=== PATIENT | male | born 1960 | race Caucasian/White ===

== ENCOUNTER 2025-10-05 13:11 | Observation (INO) ==
[2025-10-05 13:49] LABS: Base Excess VBG 2.2 mEq/L; HCO3 VBG 28 mmol/L; Oxygen Saturation VBG 79.0 %; PCO2 VBG 46 mmHg (38-50); PO2 VBG 47 mmHg; pH VBG 7.39 (7.36-7.41)
[2025-10-05 13:53] LABS: Hematocrit (blood only) 49.3 % (42.0-52.0); Hemoglobin 15.9 g/dL (14.0-18.0); Immature Granulocytes # (auto) 0.02 K/uL (0.01-0.20); Immature Granulocytes % (auto) 0.2 %; Mean Corpuscular Hemoglobin 28.7 pg (25.0-34.0); Mean Corpuscular Volume 89.0 fL (80.0-100.0); Platelet Count 239 K/uL (130-400); RDW Standard Deviation 44.9 fL (36.4-46.3); Red Blood Count 5.54 M/uL (4.70-6.10); White Blood Count 8.46 K/ul (4.8-10.8)
[2025-10-05 14:12] LABS: Appearance Urine Clear (Clear); Bacteria Urine Automated None Seen (None Seen); Glucose Urine UA Trace (Negative); RBC Urine Automated 0-2 /hpf (0-2); WBC Urine Automated 0-5 /hpf (0-5)
[2025-10-05 14:12] LABS: Alanine Aminotransferase 15.0 U/L (7-52); Albumin Globulin Ratio 1.1 (0.9-2); Albumin Level 3.7 gm/dl (3.4-5.0); Alkaline Phosphatase 75.0 U/L (34-104); Anion Gap 11.0 (3-11); Bilirubin,Total 1.5 mg/dl (0.2-1.0); Blood Urea Nitrogen 16.0 mg/dl (6-23); Calcium 9.1 mg/dl (8.6-10.3); Carbon Dioxide 27.0 mmol/L (21-32); Chloride 101.0 mmol/L (98-107); Creatinine Clr Calc Pharmacy 103.7 ml/min; Globulin 3.3 gm/dl (2.5-4.0); Glucose 167.0 mg/dl (70-99(Fasting)); Magnesium 1.8 mg/dl (1.7-2.4); Potassium 4.0 mmol/L (3.5-5.1); Sodium 139.0 mmol/L (136-145); Total Protein 7.0 gm/dl (6.0-8.3)
--- NOTE | 2025-10-05 14:19 | XRay Report ---
XR chest 1V portable CLINICAL HISTORY: Dyspnea COMPARISON STUDY: None FINDINGS: The heart is enlarged. There is blunting of the right lateral costophrenic angle suspicious for a small right pleural effusion. There are hazy airspace opacities the right lung base. The upper lung zones appear clear. There is no evidence for pulmonary edema. Incidental note is made of peritendinous calcifications within the shoulders consistent with calcific tendinopathy. IMPRESSION: 1. Cardiomegaly 2. Small right pleural effusion with associated right basilar atelectasis/consolidation ACT 112: Negative or not required by law. Electronically signed by: Adam Stafford M.D. 10/05/2025 2:18 PM
[2025-10-05 14:21] LABS: INR 1.2 (0.9-1.1); Partial Thromboplastin Time 24 Seconds (21-31); Prothrombin Time 12.8 Seconds (9.0-12.0)
--- NOTE | 2025-10-05 14:28 | Emergency Department Note ---
Impression & Plan CHF (congestive heart failure), Dyspnea, Fluid overload, Abdominal ascites, Elevated troponin ED Provider Note NAME: ANUJ SIMS AGE: 64 SEX: M : 1960 ARRIVES VIA: Walk-In INFORMANT: Patient, ED PROVIDER(S): Skinny Mann DO CHIEF COMPLAINT: SOB, flank pain HPI: This is a 64-year-old male with the PMHx of DM2 and nephrolithiasis presenting to [facility] for further evaluation of dyspnea. Patient is accompanied by His who provide additional history. Triage was concern for possible kidney stone. Patient does report bilateral flank pain. Symptoms are more related to severe dyspnea. Patient states has been worsening over the past few months. Patient states he has significant orthopnea. He does report weight gain. They deny fever or chills. No cough or congestion. Denies chest pain or palpitations. They deny abdominal pain, nausea and vomiting. No urinary complaints. No recent changes in bowel movements. Patient denies recent changes in medications or OTC supplements. Patient offers no other complaints, today. ADDITIONAL HISTORY OBTAINED: Per HPI Chronic Medical/Social Conditions Affecting Care: Per HPI PAST MEDICAL HISTORY: See Below PAST SURGICAL HISTORY: See Below FAMILY HISTORY: See Below SOCIAL HISTORY: Stopped drinking heavily about 5-6years ago. Never smoker. HOME MEDICATIONS: See Below ALLERGIES: See Below VITALS: See Below PHYSICAL EXAMINATION: GENERAL: Sitting up in bed, alert, well appearing, well nourished, no distress, non-toxic EYE EXAM: normal conjunctiva. OROPHARYNX: no exudate, no erythema, lips, buccal mucosa, and tongue normal and mucous membranes are moist NECK: supple, no nuchal rigidity, no adenopathy, non-tender LUNGS: Decreased breath sounds. Rales present. Normal chest wall mechanics HEART: no murmurs, regular rate, regular rhythm ABDOMEN: abdomen soft, non-tender, no masses, no rebound or guarding. BACK: Back is symmetrical on inspection and there is no deformity, no midline tenderness, no CVA tenderness. SKIN: no rashes and no bruising UPPER EXTREMITIES: upper extremities are grossly normal. LOWER EXTREMITIES: Bilateral lower extremity edema NEURO EXAM: Normal sensorium, GCS 15, normal speech, no gross weakness of arms, no gross weakness of legs. MEDICAL DECISION MAKING: Differential diagnoses includes but not limited to ACS, unstable angina, dysrhythmia, PNA, hypervolemia/pulmonary edema, CHF exacerbation, COPD exacerbation, PE, pneumothorax, pericardial effusion, cardiac tamponade, anxiety/psychogenic, viral URI In summary, this is a 64 year old male who presented with dyspnea. Differential as above. Nursing notes and pertinent past medical records reviewed. Vital signs reviewed and the patient is Afebrile hemodynamically stable. History and presentation revealed patient does not follow with a doctor. Now presenting with hypervolemia and dyspnea. Physical examination revealed as above. As a result of my initial evaluation, IV access was established and the patient was placed on CCRM. Therapeutics ordered include close observation. Diagnostics interpreted by me include EKG and cardiac monitoring as listed below: -Cardiac Monitoring: An order was placed for continuous cardiac monitoring. The monitor shows a rate of 50-80s with regular rhythm. -ECG: Normal sinus rhythm at a ventricular rate of [address] segment changes to suggest STEMI. There is left axis deviation and a left bundle branch block present. Patient completed laboratory studies and imaging. Results independently interpreted by me are no leukocytosis or anemia. Normal VBG. Troponin elevated. BNP elevated at 906. Chest x-ray is consistent with a right-sided pleural effusion and interstitial edema. Do feel this likely represents a fluid overloaded state. Patient has lower extremity edema as well as abdominal distention. We proceeded with a CT PE study. No pulmonary embolism in particular saddle embolism at this time. Again represented volume overload state with interstitial edema and bilateral pleural effusions. CT of the abdomen shows a left renal calculus. Do not believe this is causing him significant issues at this time. Appears to be within the kidney. Patient has abdominal ascites as well. Do feel the patient's presentation today is mostly consistent with a CHF exacerbation. Patient has not been to the doctor in many years. He has not have good follow-up. Will plan to admit the patient for IV diuresis and further workup. Ultimately, the decision was made to admit the patient for likely new onset CHF. I discussed the case with the hospitalist service via telephone/TigerText and they are agreeable to admit the patient to their services. Based on the above, including the patient's age, coexisting illnesses, labs, imaging, and exam findings the decision to treat as an inpatient. I discussed the patient with the hospitalist team who recommended admission to their services. They received the medications, treatments, interventions indicated above and their condition remained guarded. I discussed my findings with the patient and their family and they understand and agree with the treatment plan. All patient / family questions were answered to their satisfaction. Consults/Care Managements Discussions: Per MDM ER treatment provided: See above Procedures:none Critical Care: None The chart was completed utilizing [employer] Speech voice recognition software. Grammatical errors, random word insertions, pronoun errors, and incomplete sentences are an occasional consequence of this system due to software limitations, ambient noise, and hardware issues. Any formal questions or concerns about the content, text, or information contained within the body of this dictation should be directly addressed to the physician for clarification. Past Med/Surg History Problem List (Updated 10/08/25 @ 22:39 by Skinny Mann DO) CHF (congestive heart failure) (Acute) Morbid obesity Type 2 diabetes mellitus Left bundle branch block Elevated troponin (Acute) Abdominal ascites (Acute) Fluid overload (Acute) Dyspnea (Acute) Social History Smoking Status: Never smoker Second Hand Exposure: No; Do You Dip or Chew Tobacco: No; Hx Alcohol Use: No Hx Substance Use: No Preferred Language: Lebanese Communication Ability: Effective Cat Driver Required: No Beliefs That Will Affect Care: None Current Living Situation: Alone Feels Safe at Home: Yes Assistive Devices: None Allergies Allergies Allergy/AdvReac Type Severity Reaction Status Date / Time No Known Allergies Allergy Unverified 10/05/25 15:30 Home Meds Previous Rx's Medication Instructions Recorded blood sugar diagnostic (True #100 ea 10/07/25 Metrix Glucose Test Strip) blood-glucose meter (True Metrix #1 ea 10/07/25 Glucose Meter) empagliflozin 10 mg tablet 10 mg PO DAILY 30 days #30 tabs 10/07/25 (Jardiance) lancets 30 gauge (TRUEplus Lancets) #200 ea 10/07/25 metformin 500 mg tablet,extended 500 mg PO BID 30 days #60 tabs 10/07/25 release 24 hr sacubitril 24 mg-valsartan 26 mg 1 tab PO BID 30 days #60 tabs 10/07/25 tablet (Entresto) Results & Data (ED) Vital Signs Vital Signs - 24 hr 10/05/25 13:12 10/05/25 13:37 10/05/25 13:49 Temperature 36.6 C Temperature Source Temporal Artery Scan Pulse Rate 84 Pulse Rate [Finger] 69 Pulse Rhythm [Finger] Regular Respiratory Rate 18 22 Respiratory Effort / Characteristics Spontaneous Labored Respiratory Depth Shallow Blood Pressure 171/94 H Blood Pressure [Right Arm] 160/89 H Blood Pressure Mean 119 Blood Pressure Mean [Right Arm] 112 Pulse Oximetry 93 95 95 Oxygen Delivery Method Room Air Room Air Room Air Sepsis Recent Fever Within 48 Hours No Sepsis New/Unexplained Change in Mental Status N/A Sepsis Action Taken by Nursing No Action Required 10/05/25 13:55 Temperature Temperature Source Pulse Rate 58 L Pulse Rate [Finger] Pulse Rhythm [Finger] Respiratory Rate Respiratory Effort / Characteristics Respiratory Depth Blood Pressure Blood Pressure [Right Arm] Blood Pressure Mean Blood Pressure Mean [Right Arm] Pulse Oximetry Oxygen Delivery Method Sepsis Recent Fever Within 48 Hours Sepsis New/Unexplained Change in Mental Status Sepsis Action Taken by Nursing Laboratory Data 10/05/25 13:39 10/07/25 05:35 Lab Results 10/05/25 10/05/25 10/05/25 Range/Units 13:35 13:38 13:39 WBC 8.46 (4.8-10.8) K/ul RBC 5.54 (4.70-6.10) M/uL Hgb 15.9 (14.0-18.0) g/dL Hct 49.3 (42.0-52.0) % MCV 89.0 (80.0-100.0) fL MCH 28.7 (25.0-34.0) pg MCHC 32.3 (32.0-36.0) g/dL RDW Std Deviation 44.9 (36.4-46.3) fL RDW Coeff of Sami 13.8 (11.5-14.5) % Plt Count 239 (130-400) K/uL MPV 9.9 (9.4-12.4) fL Immature Gran % (Auto) 0.2 % Neut % (Auto) 68.2 % Lymph % (Auto) 20.0 % Kay % (Auto) 10.6 % Eos % (Auto) 0.6 % Baso % (Auto) 0.4 % Neut # (Auto) 5.77 (1.40-6.50) K/uL Lymph # (Auto) 1.69 (1.20-3.40) K/uL Kay # (Auto) 0.90 H (0.11-0.59) K/uL Eos # (Auto) 0.05 (0.00-0.50) K/uL Baso # (Auto) 0.03 (0.00-0.20) K/uL Immature Gran # (Auto) 0.02 (0.01-0.20) K/uL PT 12.8 H (9.0-12.0) Seconds INR 1.2 H (0.9-1.1) APTT 24 (21-31) Seconds PTT Ratio 0.9 VBG pH 7.39 (7.36-7.41) VBG pCO2 46 (38-50) mmHg VBG pO2 47 mmHg VBG HCO3 28 mmol/L VBG O2 Saturation 79.0 % VBG Base Excess 2.2 mEq/L Sodium 139 (136-145) mmol/L Potassium 4.0 (3.5-5.1) mmol/L Chloride 101 (98-107) mmol/L Carbon Dioxide 27 (21-32) mmol/L Anion Gap 11 (3-11) BUN 16 (6-23) mg/dl Creatinine 0.95 (0.6-1.4) mg/dl Est Cr Clr Drug Dosing 103.7 ml/min eGFR 88.83 BUN/Creatinine Ratio 16.8 (10-20) Glucose 167 H (70-99(Fasting)) mg/dl Calcium 9.1 (8.6-10.3) mg/dl Magnesium 1.8 (1.7-2.4) mg/dl Total Bilirubin 1.5 H (0.2-1.0) mg/dl AST 16 (13-39) U/L ALT 15 (7-52) U/L Alkaline Phosphatase 75 (34-104) U/L Troponin I High Sens 44.9 H (0-20) pg/ml B-Natriuretic Peptide 906 H (0-100) pg/ml Total Protein 7.0 (6.0-8.3) gm/dl Albumin 3.7 (3.4-5.0) gm/dl Globulin 3.3 (2.5-4.0) gm/dl Albumin/Globulin Ratio 1.1 (0.9-2) Urine Color Dark Yellow Urine Appearance Clear (Clear) Urine pH 5.5 (4.5-7.5) Ur Specific Sherman 1.026 (1.000-1.030) Urine Protein 3+ H (Negative) Urine Glucose (UA) Trace H (Negative) Urine Ketones 1+ H (Negative) Urine Blood Negative (Negative) Urine Nitrite Negative (Negative) Urine Bilirubin 2+ H (Negative) Urine Urobilinogen Negative (Negative) Ur Leukocyte Esterase Trace H (Negative) Urine WBC (Auto) 0-5 (0-5) /hpf Urine RBC (Auto) 0-2 (0-2) /hpf U Hyaline Cast (Auto) 11-20 H (0-2) /lpf U Epithel Cells (Auto) 3-5 H (0-2) /hpf Urine Bacteria (Auto) None Seen (None Seen) Urine Mucus Present A (None Prsent) Urine Comment Adenovirus (PCR) Not Detected (NotDetected) B. pertussis DNA (PCR) Not Detected (NotDetected) B.parapertussis DNA PCR Not Detected (NotDetected) C. pneumoniae DNA (PCR) Not Detected (NotDetected) Coronavirus OC43 (PCR) Not Detected (NotDetected) Coronavirus HKU1 (PCR) Not Detected (NotDetected) Coronavirus 229E (PCR) Not Detected (NotDetected) SARS-CoV-2 (PCR) Not Detected (NotDetected) Coronavirus NL63 (PCR) Not Detected (NotDetected) Human Metapneumovir PCR Not Detected (NotDetected) Influenza Type A (PCR) Not Detected (NotDetected) Influenza Type B (PCR) Not Detected (NotDetected) M. pneumoniae (PCR) Not Detected (NotDetected) Parainfluenza 1 (PCR) Not Detected (NotDetected) Parainfluenza 2 (PCR) Not Detected (NotDetected) Parainfluenza 3 (PCR) Not Detected (NotDetected) Parainfluenza 4 (PCR) Not Detected (NotDetected) RSV (PCR) Not Detected (NotDetected) Entero/Rhino (PCR) Not Detected (NotDetected) 10/05/25 Range/Units 15:51 WBC (4.8-10.8) K/ul RBC (4.70-6.10) M/uL Hgb (14.0-18.0) g/dL Hct (42.0-52.0) % MCV (80.0-100.0) fL MCH (25.0-34.0) pg MCHC (32.0-36.0) g/dL RDW Std Deviation (36.4-46.3) fL RDW Coeff of Sami (11.5-14.5) % Plt Count (130-400) K/uL MPV (9.4-12.4) fL Immature Gran % (Auto) % Neut % (Auto) % Lymph % (Auto) % Kay % (Auto) % Eos % (Auto) % Baso % (Auto) % Neut # (Auto) (1.40-6.50) K/uL Lymph # (Auto) (1.20-3.40) K/uL Kay # (Auto) (0.11-0.59) K/uL Eos # (Auto) (0.00-0.50) K/uL Baso # (Auto) (0.00-0.20) K/uL Immature Gran # (Auto) (0.01-0.20) K/uL PT (9.0-12.0) Seconds INR (0.9-1.1) APTT (21-31) Seconds PTT Ratio VBG pH (7.36-7.41) VBG pCO2 (38-50) mmHg VBG pO2 mmHg VBG HCO3 mmol/L VBG O2 Saturation % VBG Base Excess mEq/L Sodium (136-145) mmol/L Potassium (3.5-5.1) mmol/L Chloride (98-107) mmol/L Carbon Dioxide (21-32) mmol/L Anion Gap (3-11) BUN (6-23) mg/dl Creatinine (0.6-1.4) mg/dl Est Cr Clr Drug Dosing ml/min eGFR BUN/Creatinine Ratio (10-20) Glucose (70-99(Fasting)) mg/dl Calcium (8.6-10.3) mg/dl Magnesium (1.7-2.4) mg/dl Total Bilirubin (0.2-1.0) mg/dl AST (13-39) U/L ALT (7-52) U/L Alkaline Phosphatase (34-104) U/L Troponin I High Sens 47.5 H (0-20) pg/ml B-Natriuretic Peptide (0-100) pg/ml Total Protein (6.0-8.3) gm/dl Albumin (3.4-5.0) gm/dl Globulin (2.5-4.0) gm/dl Albumin/Globulin Ratio (0.9-2) Urine Color Urine Appearance (Clear) Urine pH (4.5-7.5) Ur Specific Sherman (1.000-1.030) Urine Protein (Negative) Urine Glucose (UA) (Negative) Urine Ketones (Negative) Urine Blood (Negative) Urine Nitrite (Negative) Urine Bilirubin (Negative) Urine Urobilinogen (Negative) Ur Leukocyte Esterase (Negative) Urine WBC (Auto) (0-5) /hpf Urine RBC (Auto) (0-2) /hpf U Hyaline Cast (Auto) (0-2) /lpf U Epithel Cells (Auto) (0-2) /hpf Urine Bacteria (Auto) (None Seen) Urine Mucus (None Prsent) Urine Comment Adenovirus (PCR) (NotDetected) B. pertussis DNA (PCR) (NotDetected) B.parapertussis DNA PCR (NotDetected) C. pneumoniae DNA (PCR) (NotDetected) Coronavirus OC43 (PCR) (NotDetected) Coronavirus HKU1 (PCR) (NotDetected) Coronavirus 229E (PCR) (NotDetected) SARS-CoV-2 (PCR) (NotDetected) Coronavirus NL63 (PCR) (NotDetected) Human Metapneumovir PCR (NotDetected) Influenza Type A (PCR) (NotDetected) Influenza Type B (PCR) (NotDetected) M. pneumoniae (PCR) (NotDetected) Parainfluenza 1 (PCR) (NotDetected) Parainfluenza 2 (PCR) (NotDetected) Parainfluenza 3 (PCR) (NotDetected) Parainfluenza 4 (PCR) (NotDetected) RSV (PCR) (NotDetected) Entero/Rhino (PCR) (NotDetected) Administered Medications Discontinued Medications Empagliflozin (Empagliflozin 10 Mg Tab) 10 mg PO DAILY BRONSON Stop: 11/05/25 10:59 Last Admin: 10/07/25 08:53 Dose: 10 mg Documented By: sourav Admin: 10/06/25 11:17 Dose: 10 mg Documented By: MORENA Enoxaparin Sodium (Enoxaparin Inj 40 Mg/0.4 Ml Syr) 40 mg SQ QAM BRONSON Stop: 11/05/25 08:59 Last Admin: 10/07/25 08:53 Dose: 40 mg Documented By: sourav Admin: 10/06/25 08:49 Dose: 40 mg Documented By: MORENA Furosemide (Furosemide 40 Mg/4 Ml Vial) 40 mg IV ONE ONE Stop: 10/05/25 16:05 Last Admin: 10/05/25 16:40 Dose: 40 mg Documented By: AARON Furosemide (Furosemide 40 Mg/4 Ml Vial) 40 mg IV [id number] BRONSON Stop: 11/04/25 19:14 Last Admin: 10/07/25 08:53 Dose: 40 mg Documented By: sourav Admin: 10/06/25 16:53 Dose: 40 mg Documented By: Admin: 10/06/25 08:50 Dose: 40 mg Documented By: Admin: 10/05/25 19:46 Dose: 40 mg Documented By: RD Insulin Aspart (Insulin Aspart Per Unit Charge) 0 units SC ACHS BRONSON Stop: 11/05/25 20:59 Last Admin: 10/07/25 08:39 Dose: Not Given Documented By: sourav Admin: 10/06/25 20:16 Dose: Not Given Documented By: DEE Ioversol (Optiray 320 125ml) 120 ml IV ONCE ONE Stop: 10/05/25 14:34 Last Admin: 10/05/25 14:34 Dose: 120 ml Documented By: LIZET Potassium Chloride (Potassium Chloride Crtab 20 Meq Tabcr) 40 meq PO NOW STA Stop: 10/06/25 08:30 Last Admin: 10/06/25 08:49 Dose: 40 meq Documented By: MORENA Potassium Chloride (Potassium Chloride Crtab 20 Meq Tabcr) 40 meq PO ONE ONE Stop: 10/07/25 11:01 Last Admin: 10/07/25 11:15 Dose: 40 meq Documented By: sourav Sacubitril/Valsartan (Valsartan/Sacubitril 26/24mg Tab) 1 tab PO BID BRONSON Stop: 11/05/25 20:59 Last Admin: 10/07/25 08:53 Dose: 1 tab Documented By: sourav Admin: 10/06/25 20:20 Dose: 1 tab Documented By: [facility] Imaging Data Radiologist's Impression: Chest X-Ray 10/05/25 13:26 XR chest 1V portable CLINICAL HISTORY: Dyspnea COMPARISON STUDY: None FINDINGS: The heart is enlarged. There is blunting of the right lateral costophrenic angle suspicious for a small right pleural effusion. There are hazy airspace opacities the right lung base. The upper lung zones appear clear. There is no evidence for pulmonary edema. Incidental note is made of peritendinous calcifications within the shoulders consistent with calcific tendinopathy. IMPRESSION: 1. Cardiomegaly 2. Small right pleural effusion with associated right basilar atelectasis/consolidation ACT 112: Negative or not required by law. Electronically signed by: Adam Stafford M.D. 10/05/2025 2:18 PM Discharge Plan Visit Data Chief Complaint: Kidney Stone Stated Complaint: POSSIBLE KIDNEY STONE BLE ED Provider: Skinny Mann Discharge Problem: CHF (congestive heart failure), Dyspnea, Fluid overload, Abdominal ascites, Elevated troponin Patient Disposition: Admitted As Inpatient Condition: Serious Discharge Instructions Interventions: ED Discharge Assessment Last Done: 10/05/25 18:46
[2025-10-05] MEDS: OPTIRAY 320 125ml IV ONE (14:34)
[2025-10-05 14:41] LABS: Chlamydia pneumoniae PCR Not Detected (NotDetected); Coronavirus 229E PCR Not Detected (NotDetected); Coronavirus CoV-2 (COVID19)PCR Not Detected (NotDetected); Coronavirus HKU1 PCR Not Detected (NotDetected); Coronavirus NL63 PCR Not Detected (NotDetected); Coronavirus OC43PCR Not Detected (NotDetected); Human Metapneumovirus PCR Not Detected (NotDetected); Parainfluenza Virus 1 PCR Not Detected (NotDetected); Parainfluenza Virus 2 PCR Not Detected (NotDetected); Parainfluenza Virus 3 PCR Not Detected (NotDetected); Parainfluenza Virus 4 PCR Not Detected (NotDetected); Respiratory Syncytial VirusPCR Not Detected (NotDetected); Rhinovirus/Enterovirus PCR Not Detected (NotDetected)
--- NOTE | 2025-10-05 15:00 | CT Scan Report ---
CT SCAN OF THE ABDOMEN AND PELVIS WITH IV CONTRAST CLINICAL HISTORY: Chest and flank pain, shortness of breath COMPARISON STUDY: None TECHNIQUE: Following the IV administration of 120 cc of Optiray 320, CT scan of the abdomen and pelv is is performed from the lung bases to the proximal femora. Images are reviewed in the axial, sagitta l, and coronal planes. IV contrast was administered without complication. A dose lowering technique w as utilized adhering to the principles of ALARA. CT DOSE: FINDINGS: Lung bases: There is a small to moderate right pleural effusion and trace left pleural effusion. Liver: No focal hepatic masses are visualized. The hepatic and portal veins appear patent. Gallbladder: No stones identified. Spleen: No splenic masses identified. Pancreas: There is no ductal dilatation. No pancreatic masses are identified. Adrenal glands: No adrenal masses are visualized Kidneys: No solid renal masses are visualized. There is no hydronephrosis. There is a nonobstructing 3 mm upper pole left renal calculus. There is no ureteral dilatation. Abdominal vasculature: There is no evidence of abdominal aortic aneurysm. Bowel: There are no transition zones to indicate bowel obstruction. There are no findings to indicate acute appendicitis. There are scattered colonic diverticula. There are no findings to indicate acute diverticulitis. Peritoneum: There is a moderate volume of ascites. There is a moderate fat-containing umbilical herni a. There are small fat-containing inguinal hernias versus lipomatous inguinal canals. Lymphadenopathy: There are no pathologically enlarged abdominal or pelvic lymph nodes. Pelvic viscera: There are no abnormal pelvic masses. No bladder calculi are visualized. Skeletal structures: There is an old right symphysis pubis deformity. There is partial ankylosis of t he SI joints. Degenerative changes are present within the spine. No destructive skeletal lesions are visualized. IMPRESSION: 1. Nonobstructing 3 mm left renal calculus 2. No evidence of bowel obstruction. No evidence of free air 3. Colonic diverticulosis, most pronounced at the level the cecum and ascending colon. No evidence of acute peridiverticular inflammatory change. However, it should be noted that evaluation for peridive rticular inflammatory change is limited due to the ascites. 4. Moderate abdominal ascites 5. Moderate fat-containing umbilical hernia 6. Small to moderate right pleural effusion ACT 112: Negative or not required by law. Electronically signed by: Adam Stafford M.D. 10/05/2025 2:59 PM
--- NOTE | 2025-10-05 15:13 | CT Scan Report ---
CT ANGIOGRAM OF THE CHEST CLINICAL HISTORY: Chest pain. Possible pulmonary embolism COMPARISON STUDY: Chest x-ray dated 10/05/2025 TECHNIQUE: Following the IV administration of 120 cc of Optiray 320, CT angiogram of the chest was pe rformed from the upper abdomen to the thoracic inlet utilizing the pulmonary embolus protocol. Images are reviewed in the axial, sagittal, and coronal planes. 3-D MIPS images are created and assessed. I V contrast was administered without complication. A dose lowering technique was utilized adhering to the principles of ALARA. CT DOSE: 2404.55 mGy.cm FINDINGS: Visualized portions the thyroid are unremarkable. There is no evidence of thoracic aortic dilatation. There is absence of enhancement of the peripheral most subsegmental pulmonary artery branches at the level of the posterior segment the right lower lobe. Discrete "filling defects" are however not ident ified. Small emboli are not excluded. There are no other findings suspicious for pulmonary emboli. There are no pathologically enlarged axillary lymph nodes. There is a borderline enlarged prevascular lymph node measuring 1 cm in short axis. There is no pathologic hilar lymphadenopathy. There is a trace left pleural effusion and small right pleural effusion. Increased markings the right lung base are likely atelectatic. There is a 2.5 mm pleural-based nodule within the right upper lobe as visualized on image #[id number]. T his is of doubtful clinical significance. The visualized portions of the upper abdomen reveal ascites. IMPRESSION: 1. Absent enhancement of the peripheral subsegmental posterior segment right lower lobe pulmonary bra nches. Although discrete filling defects are not visualized, small emboli are not excluded. 2. Small right pleural effusion and trace left pleural effusion 3. Upper abdominal ascites ACT 112: Negative or not required by law. Electronically signed by: Adam Stafford M.D. 10/05/2025 3:12 PM
--- NOTE | 2025-10-05 15:36 | Electrocardiogram Report ---
Test Reason : Blood Pressure : */* mmHG Vent. Rate : 72 BPM Atrial Rate : 72 BPM P-R Int : 166 ms QRS Dur : 160 ms QT Int : 490 ms P-R-T Axes : 75 -39 199 degrees QTcB Int : 536 ms Normal sinus rhythm Left axis deviation Left bundle branch block Abnormal ECG No previous ECGs available Confirmed by Willis Aguilar ([id number]) on 10/05/2025 3:36:08 PM Referred By: REFERRED SELF Confirmed By: Willis Aguilar
--- NOTE | 2025-10-05 16:39 | History & Physical Report ---
Date of Service October 05, 2025 Assessment & Plan (1) Dyspnea: (2) Fluid overload: (3) Abdominal ascites: (4) Elevated troponin: (5) Left bundle branch block: Plan 64 year old male with no known PMHx presents with progressive dyspnea x 1 month: #Dyspnea // #Fluid overload, suspected CHF: History and exam suggestive of CHF exacerbation - start IV Lasix 40mg BID CTA chest with absent enhancement of peripheral RLL pulmonary branches, though discrete filling defects not visualized - low suspicion for PE based on clinical picture and absence of concomitant tachycardia Obtain baseline TTE Check AM labs #LBBB // #Elevated troponin: No anginal symptoms, modestly elevated troponin - suspect LBBB more of a chronic finding rather than CA equivalent, elevated troponin most likely d/t demand ischemia Trend troponin to peak Further work up pending review of TTE findings Evaluate for cardiovascular risk factors - check AM lipid panel, hemoglobin A1c #Abdominal Ascites: Could be HF related, particularly if TTE demonstrates right heart failure CT A/P without overt liver abnormality, though moderate abdominal ascites present - consider further work up pending review of TTE Dispo: Admit med-tele VTE ppx: Lovenox Diet: HH Full Code History of Present Illness Primary Care Provider: NO PCP 64 year old male with no known PMHx presents with progressive dyspnea x 1 month. Progressive dyspnea started after coming down with viral URI in early September, though HALL has been present for several months now. +orthopnea, LE swelling. Unsure about baseline weight but does not think weight has changed significantly recently. Denies chest pain or tightness. Denies palpitations. Denies fevers/chills. Patient does not have a PCP, essentially has not seen a doctor in 25 years. Patient is former alcohol user, drank a fifth of hard liquor Q3 days for a 5 year stretch, but quit about 10 years ago. Previous chewing tobacco use, quite 25 years ago. Father had CA at age 48, mom developed CHF late in life, sister had CABG in her mid-60s. Allergies Allergy/AdvReac Type Severity Reaction Status Date / Time No Known Allergies Allergy Unverified 10/05/25 15:30 Home Medications Medication Instructions Recorded Confirmed Type No Known Home Medications 10/05/25 10/05/25 History Past Med/Surg History Problem List (Updated 10/05/25 @ 17:36 by Lan Adams, DO) Left bundle branch block Elevated troponin Abdominal ascites Fluid overload Dyspnea Social History Smoking Status: Never smoker Preferred Language: Yi Feels Safe at Home: Yes Review of Systems Review of Systems: as per HPI Physical Exam Physical Exam: Constitutional: no acute distress HEENT: NCAT, no conjunctival injection CV: RRR, extremities well-perfused, +bilateral LE edema Resp: Diminished lung sounds in bilateral bases, o/w clear to auscultation, mild tachypnea and conversational dyspnea GI: +distended, nontender to palpation, normal bowel sounds MSK: no gross deformities Skin: warm, dry, no rash appreciated Neuro: alert, oriented, no focal neurologic deficit appreciated Results & Data Results & Data Vital Signs (Past 12 Hours) Vital Signs Temp Pulse Pulse Resp BP BP Pulse Ox 10/05/25 15:12 66 18 138/76 91 10/05/25 13:55 58 L 10/05/25 13:49 69 22 160/89 H 95 10/05/25 13:37 95 10/05/25 13:12 36.6 C 84 18 171/94 H 93 O2 Del Method 10/05/25 15:12 Room Air 10/05/25 13:55 10/05/25 13:49 Room Air 10/05/25 13:37 Room Air 10/05/25 13:12 Room Air Supervising Physician Co-Signing Physician Notes I personally examined the patient and verified all peters points of history and exam, discussed case, and agree with decision making with Dr Adams Progressive dyspnea. Vitals noted, in general he is awake and alert pleasant no distress. HEENT normocephalic atraumatic mucous membranes moist. Breathing unlabored no accessory muscle use good effort. Skin without rashes pallor or icterus. Neuro without focal deficits. Dyspnea/fluid overloadalmost certainly CHFtype and further workup/management to be determined by echo. Lasix for now. Await echocardiogram. Otherwise as above. DVT proph - lovenox Resident Activity Tracking Resident Involvement: Resident Care Provided Care Provided: Adult Hospital Medicine
[2025-10-05] MEDS: FUROSEMIDE 40 MG/4 ML VIAL IV ONE (16:40)
--- NOTE | 2025-10-05 17:02 | Billing Data ---
Date of Service October 05, 2025 Coding Level of Care Code 25640 INT INP/OBS CARE
[2025-10-05] MEDS ORDERED: POLYETHYLENE (MIRALAX) 17 GM PACK PO PRN (18:46)
[2025-10-05] MEDS ORDERED: MELATONIN 3 MG TAB PO PRN (18:46)
[2025-10-05] MEDS ORDERED: ACETAMINOPHEN 325 MG TAB PO PRN (18:46)
[2025-10-05] MEDS ORDERED: ALUMINUM/MAGNESIUM SUSP 30 ML UDC PO PRN (18:46)
[2025-10-05] MEDS ORDERED: ONDANSETRON INJ 2 MG/ML 2 ML VIAL IV PRN (18:46)
[2025-10-05] MEDS: FUROSEMIDE 40 MG/4 ML VIAL IV SCH (19:46)
--- NOTE | 2025-10-06 06:54 | Hospitalist Progress Note ---
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 No regional wall motion abnormalities noted. RV not well visualized. Low suspicion for ischemic cardiomyopathy - rather, suspect HF and resulting sequelae stem from untreated KITA/OHS - check overnight pulse ox study and AM ABG Symptomatic response to diuresis - continue IV Lasix 40mg BID Check AM BMP, replete electrolytes as needed Start GDMT - Jardiance and Entresto, beta yifan deferred at this time d/t episodic bradycardia #LBBB // #Elevated troponin: No anginal symptoms, modestly elevated troponin (max 47) Low suspicion for ischemic cardiomyopathy - however, consider stress echo in the future for completeness Cardiometabolic labs - total cholesterol 149, LDL 87, HDL 43, Hemoglobin A1c pending #Abdominal Ascites: Most likely subsequent to right heart failure CT A/P without overt liver abnormality, though moderate abdominal ascites present - will obtain liver US given h/o EtOH abuse VTE ppx: Lovenox Diet: Admission and Anticipated Discharge Date Admission Date: October 05, 2025 Supervising Physician Co-Signing Physician Notes I personally examined the patient and verified all peters points of history and exam, discussed case, and agree with decision making with Dr Adams Overall feeling better. Discussed echocardiogram. Discussed suspicion this all relates to untreated KITA. He expresses a good understanding. Vitals noted, in general he is awake and alert pleasant no distress. HEENT normocephalic atraumatic mucous membranes moist. Breathing unlabored no accessory muscle use good effort. Skin without rashes pallor or icterus. Neuro without focal deficits. Acute on chronic HFrEFmost likely a nonischemic cardiomyopathy driven by undiagnosed and therefore untreated KITA related to his morbid obesity with BMI of 42.9especially given that he has more right sided symptoms than left sided/pulmonary suggesting the pressure in his chest whenever he is asleep is the biggest part of the bottleneck. Given his EF is lowwith global hypokinesis I doubt it is ischemic but at some point when he is feeling better a stress echo for completeness or given his left bundle probably more appropriate a nuclear medicine test would be reasonable. Start goal-directed medical therapy. As a relates to the high probability of undiagnosed/untreated OSAcheck overnight pulse ox and a.m. blood gasif he shows evidence of OHS then we can get him on a device right away; if not, we will need to do a sleep study. As it relates to his ascites, I suspect it is mostly from right sided CHF backup, but obviously with his alcohol history liver disease is possiblejust does not seem to fit the clinical picture as wellhepatic ultrasound for completeness, follow INR and theo irubin periodically. DVT proph - lovenox Subjective Patient seen at bedside, notes that his shortness of breath has improved markedly after 2 doses of IV lasix. +ongoing cough. Denies chest pain, palpitations, fevers/chills. Tele reviewed, noted to have blocked PACs overnight, HR min 33. Review of Systems Review of Systems: as per HPI Physical Exam Physical Exam: Constitutional: no acute distress HEENT: NCAT, no conjunctival injection CV: RRR, extremities well-perfused, 2+ bilateral LE pitting edema Resp: Diminished lung sounds in bilateral bases, trace expiratory wheezes GI: +distended, nontender to palpation, normal bowel sounds MSK: no gross deformities Skin: warm, dry, no rash appreciated Neuro: alert, oriented, no focal neurologic deficit appreciated Results & Data Results & Data Vital Signs (Past 12 Hours) Vital Signs Temp Pulse Pulse Resp BP Pulse Ox O2 Del Method 10/06/25 03:44 37.1 C 79 18 158/88 H 92 Room Air 10/05/25 23:39 37.1 C 80 18 150/69 H 91 Room Air 10/05/25 22:03 73 10/05/25 21:36 Room Air 10/05/25 19:30 37.1 C 75 18 151/84 H 95 Room Air Resident Activity Tracking Resident Involvement: Resident Care Provided Care Provided: Adult Hospital Medicine
[2025-10-06 07:43] LABS: Alanine Aminotransferase 13.0 U/L (7-52); Albumin Globulin Ratio 1.2 (0.9-2); Albumin Level 3.7 gm/dl (3.4-5.0); Alkaline Phosphatase 73.0 U/L (34-104); Anion Gap 10.0 (3-11); Bilirubin,Total 1.2 mg/dl (0.2-1.0); Blood Urea Nitrogen 15.0 mg/dl (6-23); Calcium 9.0 mg/dl (8.6-10.3); Carbon Dioxide 32.0 mmol/L (21-32); Chloride 99.0 mmol/L (98-107); Cholesterol 149.0 mg/dl (0-200); Creatinine Clr Calc Pharmacy 108.0 ml/min; Globulin 3.2 gm/dl (2.5-4.0); Glucose 139.0 mg/dl (70-99(Fasting)); HDL Cholesterol 43.0 mg/dl; INR 1.2 (0.9-1.1); Potassium 3.4 mmol/L (3.5-5.1); Prothrombin Time 13.0 Seconds (9.0-12.0); Sodium 141.0 mmol/L (136-145); Total Protein 6.9 gm/dl (6.0-8.3); Triglycerides 95.0 mg/dl (0-150)
[2025-10-06] MEDS: ENOXAPARIN INJ 40 MG/0.4 ML SYR SQ SCH (08:49)
[2025-10-06] MEDS: POTASSIUM CHLORIDE CRTAB 20 MEQ TABCR PO STA (08:49)
[2025-10-06] MEDS ORDERED: ENOXAPARIN INJ 40 MG/0.4 ML SYR SQ SCH (09:00)
--- NOTE | 2025-10-06 10:15 | XCELERA ---
[id number]
--- NOTE | 2025-10-06 10:34 | Electrocardiogram Report ---
Test Reason : Blood Pressure : */* mmHG Vent. Rate : 68 BPM Atrial Rate : 68 BPM P-R Int : 184 ms QRS Dur : 156 ms QT Int : 462 ms P-R-T Axes : 46 1 173 degrees QTcB Int : 491 ms Sinus rhythm with marked sinus arrhythmia Left bundle branch block Abnormal ECG When compared with ECG of 05-Oct-2025 13:49, No significant change was found Confirmed by Willis Aguilar ([id number]) on 10/06/2025 10:34:06 AM Referred By: REFERRED SELF Confirmed By: Willis Aguilar
[2025-10-06] MEDS: EMPAGLIFLOZIN 10 MG TAB PO SCH (11:17)
--- NOTE | 2025-10-06 12:43 | Billing Data ---
Date of Service October 06, 2025 Coding Level of Care Code 59779 SUB INP/OBS CARE
[2025-10-06 13:39] LABS: Hemoglobin A1C 9.2 % (4.5-5.6)
--- NOTE | 2025-10-06 14:33 | Ultrasound Report ---
US liver CLINICAL HISTORY: Eval for cirrhotic changes COMPARISON STUDY: CT of the abdomen and pelvis October 05, 2025. FINDINGS: A right pleural effusion and a small amount of perihepatic ascites are noted. Hepatic echog enicity is mildly increased. The liver is heterogeneous with slight nodularity of the liver surface. No hepatic lesions are identified. There is no biliary ductal dilatation dictation. There are gallsto wolfgang within the gallbladder. Gallbladder is not distended. No sonographic Burnette sign was elicited. Th ere is mild gallbladder wall thickening. The pancreas is obscured by bowel gas. There is no right hyd ronephrosis. IMPRESSION: 1. Probable hepatic steatosis and cirrhosis. No hepatic lesions. 2. Cholelithiasis. Mild gallbladder wall thickening, a nonspecific finding. Overall, the findings are not suggestive of acute cholecystitis. 3. No biliary ductal dilatation. 4. Small amount of perihepatic ascites. Right pleural effusion. 5. Obscured pancreas. ACT 112: Negative or not required by law. Electronically signed by: Leandro Martinez M.D. 10/06/2025 2:32 PM
[2025-10-06] MEDS ORDERED: GLUCOSE 40% GEL 15 GM TUBE PO PRN (16:42)
[2025-10-06] MEDS ORDERED: GLUCAGON FOR INJ 1 MG VIAL SQ PRN (16:42)
[2025-10-06] MEDS ORDERED: DEXTROSE 50% 50 ML SYRINGE IV PRN (16:42)
[2025-10-06] MEDS ORDERED: GLUCOSE 10 TAB/TUBE PO PRN (16:42)
[2025-10-06] MEDS ORDERED: CARBOHYDRATES FOR HYPOGLYCEMIA PO PRN (16:42)
[2025-10-06] MEDS: INSULIN ASPART PER UNIT CHARGE SC SCH (20:16)
[2025-10-06] MEDS: VALSARTAN/SACUBITRIL 26/24MG TAB PO SCH (20:20)
[2025-10-07 05:18] LABS: HCO3 ABG 38 mmol/L (19-24); PCO2 ABG 53 mmHg (35-46); PO2 ABG 56 mmHg (80-95)
[2025-10-07 05:27] LABS: Oxygen Saturation ABG 89.0 % (90-95)
[2025-10-07 05:28] LABS: Allen Test Pos (Pos)
--- NOTE | 2025-10-07 07:15 | Hospitalist Progress Note ---
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 No regional wall motion abnormalities noted. RV not well visualized. Low suspicion for ischemic cardiomyopathy - rather, suspect HF and resulting sequelae stem from untreated KITA/OHS - check overnight pulse ox study and AM ABG Symptomatic response to diuresis - continue IV Lasix 40mg BID Check AM BMP, replete electrolytes as needed Start GDMT - Jardiance and Entresto, beta yifan deferred at this time d/t episodic bradycardia #LBBB // #Elevated troponin: No anginal symptoms, modestly elevated troponin (max 47) Low suspicion for ischemic cardiomyopathy - however, consider stress echo in the future for completeness Cardiometabolic labs - total cholesterol 149, LDL 87, HDL 43, Hemoglobin A1c pending #Abdominal Ascites: Most likely subsequent to right heart failure CT A/P without overt liver abnormality, though moderate abdominal ascites present - will obtain liver US given h/o EtOH abuse VTE ppx: Lovenox Diet: Admission and Anticipated Discharge Date Admission Date: October 05, 2025 Subjective Patient seen at bedside, notes that his shortness of breath has improved markedly after 2 doses of IV lasix. +ongoing cough. Denies chest pain, palpitations, fevers/chills. Tele reviewed, noted to have blocked PACs overnight, HR min 33. Review of Systems Review of Systems: as per HPI Physical Exam Physical Exam: Constitutional: no acute distress HEENT: NCAT, no conjunctival injection CV: RRR, extremities well-perfused, 2+ bilateral LE pitting edema Resp: Diminished lung sounds in bilateral bases, trace expiratory wheezes GI: +distended, nontender to palpation, normal bowel sounds MSK: no gross deformities Skin: warm, dry, no rash appreciated Neuro: alert, oriented, no focal neurologic deficit appreciated Results & Data Results & Data Vital Signs (Past 12 Hours) Vital Signs Temp Pulse Pulse Pulse Resp BP Pulse Ox 10/07/25 03:50 36.8 C 80 18 91/56 L 88 L 10/07/25 00:49 72 10/06/25 23:12 36.7 C 73 16 132/73 95 10/06/25 22:40 74 10/06/25 22:16 41 L 10/06/25 20:30 Pulse Ox O2 Del Method O2 Del Method 10/07/25 03:50 Room Air 10/07/25 00:49 92 Room Air 10/06/25 23:12 Room Air 10/06/25 22:40 91 Room Air 10/06/25 22:16 10/06/25 20:30 Room Air
[2025-10-07 07:20] LABS: Anion Gap 10.0 (3-11); Blood Urea Nitrogen 16.0 mg/dl (6-23); Calcium 9.1 mg/dl (8.6-10.3); Carbon Dioxide 37.0 mmol/L (21-32); Chloride 96.0 mmol/L (98-107); Creatinine Clr Calc Pharmacy 93.4 ml/min; Glucose 115.0 mg/dl (70-99(Fasting)); Potassium 3.3 mmol/L (3.5-5.1); Sodium 143.0 mmol/L (136-145)
[2025-10-07] MEDS: POTASSIUM CHLORIDE CRTAB 20 MEQ TABCR PO ONE (11:15)
--- NOTE | 2025-10-07 11:17 | Discharge Summary ---
Date of Service October 07, 2025 Admission HPI Per Admitting Provider 64 year old male with no known PMHx presents with progressive dyspnea x 1 month. Progressive dyspnea started after coming down with viral URI in early September, though HALL has been present for several months now. +orthopnea, LE swelling. Unsure about baseline weight but does not think weight has changed significantly recently. Denies chest pain or tightness. Denies palpitations. Denies fevers/chills. Patient does not have a PCP, essentially has not seen a doctor in 25 years. Patient is former alcohol user, drank a fifth of hard liquor Q3 days for a 5 year stretch, but quit about 10 years ago. Previous chewing tobacco use, quite 25 years ago. Father had CA at age 48, mom developed CHF late in life, sister had CABG in her mid-60s. Admission Exam Per Admitting Provider Constitutional: no acute distress HEENT: NCAT, no conjunctival injection CV: RRR, extremities well-perfused, +bilateral LE edema Resp: Diminished lung sounds in bilateral bases, o/w clear to auscultation, mild tachypnea and conversational dyspnea GI: +distended, nontender to palpation, normal bowel sounds MSK: no gross deformities Skin: warm, dry, no rash appreciated Neuro: alert, oriented, no focal neurologic deficit appreciated Principal Diagnosis acute on chronic [facility] Discharge Exam Constitutional: no acute distress HEENT: NCAT, no conjunctival injection CV: RRR, extremities well-perfused, 1+ bilateral LE pitting edema Resp: Diminished lung sounds in bilateral bases GI: +distended but improved compared to time of admission, nontender to palpation, normal bowel sounds MSK: no gross deformities Skin: warm, dry, no rash appreciated Neuro: alert, oriented, no focal neurologic deficit appreciated Discharge Data Allergies Allergy/AdvReac Type Severity Reaction Status Date / Time No Known Allergies Allergy Unverified 10/05/25 15:30 Consultations 10/05/25 15:32 ED Decision to Admit Stat Ordered Studies 10/05/25 13:26 CT abd pelvis IV con only Stat CT angio chest PE protocol Stat 10/06/25 10:42 liver Urgent Diabetes Follow up Diabetes Follow-up Needed for Newly Diagnosed Diabetes Hospital Course (1) Dyspnea: (2) Fluid overload: (3) Abdominal ascites: (4) Elevated troponin: (5) Left bundle branch block: (6) Morbid obesity: (7) Type 2 diabetes mellitus: Plan 64 year old male with no known PMHx presented with progressive dyspnea x 1 month: #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 No regional wall motion abnormalities noted. RV not well visualized. 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: Suspect this is route cause of cardiac sequelae - overnight pulse ox study and AM ABG support this - Overnight pulse ox study notable for desaturation index of 11.6/h, lowest SpO2 54%, average SpO2 87%, overall >50% of time spent with SpO2 < 89% - ABG notable for pCO2 53, HCO3 38, pO2 56/O2 sat 89 Recommend home BiPAP/Trilogy machine pending auth/approval [facility] would benefit from weight reduction, recommend discussing GLP-1 in the outpatient setting #T2DM: A1c 9.2% Patient met with patient educator during hospital stay, f/u as outpatient Check fasting blood sugar once daily Continue Jardiance. Start Metformin ER 500mg once day, increase to twice daily if tolerating Consider GLP1 as outpatient #LBBB // #Elevated troponin: No anginal symptoms, modestly elevated troponin (max 47) Low suspicion for ischemic cardiomyopathy - however, consider stress echo in the future for completeness Cardiometabolic labs - total cholesterol 149, LDL 87, HDL 43, A1c 9.2% #Abdominal Ascites: Most likely subsequent to right heart failure CT A/P without overt liver abnormality, though moderate abdominal ascites present Liver US suggestive of probable hepatic steatosis and cirrhosis, consider referral for elastography upon outpatient follow up Total Time Total Time Spent Total Time Spent (In Minutes): <30 Discharge Plan Discharge Items Patient Disposition: Home - Self-Care Reason For Visit: SOB Discharge Diagnosis: CHF Activity: Resume your previous activity Non-emergency contact: Primary Care Provider Call non-emergency contact if: you have any medication questions and your symptoms worsen Follow-up/Referrals: Lan Adams, DO [Resident] - (Please call your primary care provider to schedule a hospital follow-up appointment within 7-10 days) Diet: Carb Consistent or DM2 and Heart Healthy Addtl Attending Provider Instructions: You were admitted to the hospital with shortness of breath. In short, this is the result of heart failure, which we strongly suspect has developed from chronic sleep apnea over the years. You lab work suggests that you also have diabetes. These are all things that we will need to address - we are sending you home on several medications, but it is very important that you follow up with an outpatient doctor regularly for ongoing adjustments and monitoring. Sleep apnea: Our director of casework department will help with obtaining a CPAP machine, or something similar, through a home care supply store. If you are having difficult adjusting to the machine, please discuss this with the supply store; there are several modifications/different masks that can help make this adjustment easier. In the longer term, weight reduction will also help significantly in minimizing your symptoms. This is something that we can help you with in the outpatient setting. Congestive heart failure: Essentially, your heart is not pumping as effectively as it used to. Coupled with a "leaky" valve, this causes fluid to back up. This likely explains your shortness of breath and swelling. You are being discharged on the following medications, which are designed to reduce strain on the heart and optimize pumping capability. Jardiance: This medication helps protect your heart and also reduce your blood sugar. Please continue to take one 10mg tab once daily. Entresto: Take 1 tab twice daily Diabetes: From a dietary aspect, try to reduce your intake of simple carbohydrates/refined sugars (ie. pasta, starchy vegetables like potatoes etc.). A handout with additional info is attached to your discharge paperwork. New medications: In addition to the Jardiance, we are starting you on a medication called Metformin for your diabetes. Metformin: Please start by taking one 500mg tab once daily. If tolerating after a week, increase to twice daily. Pending Studies at Discharge: No Stand-Alone Forms: [facility], Smoking Cessation Medications and DC Order Prescriptions: New Jardiance 10 mg Tablet 10 mg PO DAILY 30 Days Qty: 30 0RF sacubitril-valsartan [Entresto] 24-26 mg Tablet 1 tab PO BID 30 Days Qty: 60 0RF metformin 500 mg tablet extended release 24 hr 500 mg PO BID 30 Days Qty: 60 0RF Rx Instructions: Start with one tab daily. If tolerating after one week, increase to one tab twice daily. (DME) blood-glucose meter [True Metrix Glucose Meter] Misc See Rx Instructions .Route Qty: 1 0RF Rx Instructions: As directed (DME) True Metrix Glucose Test Strip Strip See Rx Instructions .Route Qty: 100 0RF Rx Instructions: As directed (DME) lancets [TRUEplus Lancets] 30 gauge misc See Rx Instructions .Route Qty: 200 0RF Rx Instructions: use to check fasting blood sugar once daily Discharge Orders: Discharge Order (Routine); Ordered 10/07/25 Ordered By: Lan Adams Admission Data Admit Date/Time: 10/05/25 16:37 Attending Provider: Kal Velasco Admit Provider: Lan Adams Primary Care Provider: PCP,NO Other Providers: Kal Velasco Other Interventions: Discharge Summary Assessment (RN) Last Done: 10/07/25 09:55 Supervising Physician Co-Signing Physician Notes I personally examined the patient and verified all peters points of history and exam, discussed case, and agree with decision making with Dr Adams Overall feeling better. expresses good understanding of the plan and willing to make changes and follow up. Vitals noted, in general he is awake and alert pleasant no distress. HEENT normocephalic atraumatic mucous membranes moist. Breathing unlabored no accessory muscle use good effort. Skin without rashes pallor or icterus. Neuro without focal deficits. Acute on chronic HFrEFmost likely a nonischemic cardiomyopathy driven by undiagnosed and therefore untreated KITA related to his morbid obesity with BMI of 42.9especially given that he has more right sided symptoms than left sided/pulmonary suggesting the pressure in his chest whenever he is asleep is the biggest part of the bottleneck. Given his EF is lowwith global hypokinesis I doubt it is ischemic but at some point when he is feeling better a stress echo for completeness or given his left bundle probably more appropriate a nuclear medicine test would be reasonable. Start goal-directed medical therapy. OHS/KITA with restricted breathing due to body habitus impacting ribcage/diaphragmatic excursion - with significant desaturations and AM hypercapnea as well as subsequent cardiac dysfunction and CHF - for nocturnal pressure support and close f/u, lifestyle change, weight loss, supportive care DVT proph - lovenox utilized during his stay stable for home a GDMT and nocturnal pressure support, close outpt f/u and lifestyle change Resident Activity Tracking Resident Involvement: Resident Care Provided Care Provided: Adult Hospital Medicine
--- NOTE | 2025-10-07 12:40 | Billing Data ---
Date of Service October 07, 2025 Coding Level of Care Code 65832 IN/OBS DISCH 30 MIN/LESS
== END 2025-10-07 13:13 | disposition home or self-care (01) | DRG 292 ==
LOC: SUATTDRO → ED 13:11 → INTOOBSV 16:37 → 2W 16:37